=== PATIENT | male | born 2000 | race African-American/Black ===

== ENCOUNTER 2022-02-16 13:22 | Emergency (ER) | payer OTHER ==
[~2022-02-16] VITALS: Ht 175.3 cm; Wt 75.3 kg
[2022-02-16 13:23] VITALS: BP 144/94
== END 2022-02-16 17:48 | disposition home or self-care (01) ==
LOC: M ED 13:22
DX: S76.111A Strain of right quadriceps muscle, fascia and tendon, initial encounter (principal); F10.10 Alcohol abuse, uncomplicated; Y92.9 Unspecified place or not applicable; Y93.01 Activity, walking, marching and hiking; Y99.9 Unspecified external cause status